=== PATIENT | female | born 1980 | race Caucasian/White ===

== ENCOUNTER 2021-01-18 19:38 | Emergency (ER) | payer SELFPAY ==
[2021-01-18 20:17] VITALS: BP 165/92; PULSE 79; RESP 18; TEMP 36.7; O2SAT 100; BMI 29.7
[2021-01-18 22:00] LABS: Add Urine Microscopic? NO; Charge for UA Resulting for Rev
[2021-01-18 22:08] LABS: Bilirubin Urine Neg (Negative); Blood Urine Neg (Negative); Glucose Urine UA Norm (Normal); Ketones Urine Negative (Negative); Nitrate Urine Negative (Negative); Protein Urine Neg (Negative); Specific Gravity, Urine 1.005 (1.005-1.030); Urine Appearance Clear (CLEAR); Urine Color Yellow (Yellow); pH Urine 7 (5-7)
[2021-01-18 22:09] LABS: Leukocyte Esterase Urine Negative (Negative); Urobilinogen Urine Norm (Negative)
[2021-01-18 22:31] LABS: Basophils # 0.1 10^3/uL (0.0-0.1); Basophils % 1.9 %; Eosinophils % 1.2 %; Lymphocytes # 1.2 10^3/uL (0.8-4.8); Lymphocytes % 38.6 %; Mean Corpuscular HGB Conc 26.4 g/dL (30.0-36.0); Mean Corpuscular Hemoglobin 17.7 pg (28.0-34.0); Mean Corpuscular Volume 67.1 fl (81-99); Mean Platelet Volume 9.7 fL (7.4-10.4); Monocytes # 0.3 10^3/uL (0.2-0.9); Monocytes % 9.7 %; Neutrophils # 1.55 10^3/uL (1.8-7.7); Neutrophils % 48.3 %; Nucleated Red Blood Cells % 0 %; Platelet Count 320 10^3/cmm (130-400); Red Cell Distribution Width 17.8 % (12.1-15.1); White Blood Count 3.2 10^3/uL (4.0-10.0)
[2021-01-18 22:35] LABS: Hematocrit 20.8 % (37.0-47.0); Hemoglobin 5.5 g/dL (11.5-15.3)
[2021-01-18 23:02] LABS: Alanine Aminotransferase 16 U/L (0-33); Albumin Level 4.3 g/dL (3.5-5.2); Alkaline Phosphatase 50 IU/L (35-105); Anion Gap 13.8 (5-19); Aspartate Amino Transferase 17 U/L (0-32); Blood Urea Nitrogen 6 mg/dL (6-20); Calcium 8.3 mg/dL (8.5-10.5); Carbon Dioxide 25 mmol/L (22-29); Chloride 103 mmol/L (98-107); Globulin 2.7 g/dL (1.3-4.6); Glomerular Filtration Rate 136.6 mL/min (90-130); Glucose 93 mg/dL (65-115); Osmolality Calculated 283 mOsm/kg (285-295); Potassium 3.8 mmol/L (3.5-5.1); Sodium 138 mmol/L (136-145); Total Bilirubin 0.3 mg/dL (0.15-1.2)
[2021-01-18 23:15] LABS: HCG, Serum Qual Negative (Negative)
--- NOTE | 2021-01-18 23:30 | CTR_ITS ---
PROCEDURE INFORMATION: Exam: CT Abdomen And Pelvis With Contrast Exam date and time: 01/18/2021 11:30 PM Age: 40 years old Clinical indication: Other: Vaginal bleeding; Additional info: Vaginal bleeding TECHNIQUE: Imaging protocol: Computed tomography of the abdomen and pelvis with contrast. Radiation optimization: All CT scans at this facility use at least one of these dose optimization techniques: automated exposure control; mA and/or kV adjustment per patient size (includes targeted exams where dose is matched to clinical indication); or iterative reconstruction. Contrast material: OMNI 350; Contrast volume: 95 ml; Contrast route: INTRAVENOUS (IV); [place] [facility] [place] 8:32 AM RADIATION DOSE METRICS: Total DLP (mGy-cm): 1320.76 FINDINGS: Liver: Low-attenuation lesion in the liver measuring > 5mm which is incompletely characterized on this exam. Gallbladder and bile ducts: Normal. No calcified stones. No ductal dilation. Pancreas: Normal. No ductal dilation. Spleen: Normal. No splenomegaly. Adrenal glands: Normal. No mass. Kidneys and ureters: Normal. No hydronephrosis. Stomach and bowel: Unremarkable. No obstruction. No mucosal thickening. Appendix: No evidence of appendicitis. Intraperitoneal space: Unremarkable. No free air. No significant fluid collection. Vasculature: One or more calcified pelvic phleboliths. Lymph nodes: Unremarkable. No enlarged lymph nodes. Urinary bladder: Unremarkable as visualized. Reproductive: Unremarkable as visualized. Bones/joints: Unremarkable. No acute fracture. Soft tissues: Unremarkable. CT/CT abdomen pelvis w con* [id number] IMPRESSION: No acute findings. Radiation Dose CTDIVOL = (mGy): DLP = 1320.76 (mGy-cm)
--- NOTE | 2021-01-18 23:39 | ED_ITS ---
HPI - Female Genitourinary General: Chief complaint: Vaginal Bleeding Stated complaint: Vaginal Bleeding Time Seen by Provider: 01/18/21 23:11 Source: patient Mode of arrival: ambulatory Limitations: no limitations History of Present Illness: HPI Narrative: 40-year-old female who states that she always has heavy. States that she has had constant bleeding over the last month. States it has been a heavy this whole month she denies it being any worse today. She states she just became concerned has it is not stopped. States she does pass clots at times. She does not have a physician the never seen anyone for this in the past she has had some slight weakness patient's normotensive here. She denies any abdominal pain denies any vomiting. Associated symptoms: Deny abdominal pain, headache(s) or nausea Review of Systems Const: Denies: fever(s), chills, body aches or change in appetite Eyes: Denies: blurry vision or eye discomfort ENMT: Denies: throat pain or dental pain Card: Denies: chest pain Resp: Denies: dyspnea GI: Denies: abdominal pain, nausea, vomiting or diarrhea : Reports: vaginal bleeding Musc: Denies: neck pain or back pain Skin/Breast: Denies: rash Neuro: Denies: headache(s) Psych: Denies: depression Shamar/Lymph: Denies: easy bruising All/Imm: Denies: urticaria Physical Exam Const: COMMON NORMALS: no acute distress, patient oriented x3 and healthy appearing HENMT: COMMON NORMALS: normocephalic and atraumatic HEAD & SCALP: normocephalic and atraumatic Eye: COMMON NORMALS: Equal, round and reactive pupils present and EOMs intact bilaterally PUPIL: Yes Equal, round and reactive pupils present Neck/C-Spine: COMMON NORMALS: full ROM and supple Chest: COMMONS NORMALS: normal inspection of the chest and normal palpation of entire chest wall Resp: COMMON NORMALS: normal respiratory effort, No retractions, No use of accessory muscles and clear to auscultation bilaterally AUSCULTATION: clear to auscultation bilaterally Cardio: COMMON NORMALS: regular rate, regular rhythm and No murmurs present (C ardio) RATE: regular rate RHYTHM: regular rhythm GI: COMMON NORMALS: Normal to inspection, nondistended, normoactive bowel sounds present, Soft to palpation, non-tender and no masses PALPATION: Yes Soft to palpation Extremity: COMMON NORMALS: normal to inspection and full ROM Neuro: COMMON NORMALS: patient oriented x3, moves all extremities and no focal motor deficits Psych: COMMON NORMALS: mental status grossly normal, Normal thought process present and cooperative THOUGHT PROCESS: Normal thought process present Skin: COMMON NORMALS: no rashes or lesions noted and no wounds GENERAL SKIN EXAM: no rashes or lesions noted Course Vital Signs: Vital signs: Vital Signs Temperature 98.4 F 01/19/21 04:25 Pulse Rate 78 01/19/21 04:25 Respiratory Rate 16 01/19/21 04:25 Blood Pressure 109/89 01/19/21 04:25 Pulse Oximetry 100 01/19/21 04:25 MDM - Female MDM Narrative: Medical decision making narrative: Patient presents here with vaginal bleeding that is chronic in nature causing her anemia I believe her anemia is chronic as her blood pressures here and vitals have been normal. CT scan shows no acute finding we will transfuse 2 units and get her follow-up with gynecology she is to return if she has any worsening symptoms she understands agrees to plan. Lab Data: Labs: Lab Results 01/18/21 01/18/21 01/18/21 19:41 20:55 22:10 WBC 3.2 10^3/uL L 10^ 3/uL (4.0-10.0) RBC 3.10 10^6/uL L 10 ^6/uL (4.1-5.3) Hgb 5.5 g/dL L* g/dL (11.5-15.3) Hct 20.8 % L* % (37.0-47.0) MCV 67.1 fl L fl (81-99) MCH 17.7 pg L pg (28.0-34.0) MCHC 26.4 g/dL L g/dL (30.0-36.0) RDW 17.8 % H % (12.1-15.1) Plt Count 320 10^3/cmm 10^3 /cmm (130-400) MPV 9.7 fL fL (7.4-10.4) Neut % (Auto) 48.3 % % Lymph % (Auto) 38.6 % % [place] % (Auto) 9.7 % % Eos % (Auto) 1.2 % % Baso % (Auto) 1.9 % % Neut # (Auto) 1.55 10^3/uL L 10 ^3/uL (1.8-7.7) Lymph # (Auto) 1.2 10^3/uL 10^3/ uL (0.8-4.8) [place] # (Auto) 0.3 10^3/uL 10^3/ uL (0.2-0.9) Eos # (Auto) 0.0 10^3/uL 10^3/ uL (0.0-0.8) Baso # (Auto) 0.1 10^3/uL 10^3/ uL (0.0-0.1) Nucleated RBC % (a uto) 0 % % Nucleated RBCs # 0.0 /100WBC /100W BC Sodium 138 mmol/L mmol/L (136-145) Potassium 3.8 mmol/L mmol/L (3.5-5.1) Chloride 103 mmol/L mmol/L (98-107) Carbon Dioxide 25 mmol/L mmol/L (22-29) Anion Gap 13.8 (5-19) BUN 6 mg/dL mg/dL (6-20) Creatinine 0.5 mg/dL mg/dL (0.5-0.9) GFR Calculation 136.6 mL/min H mL /min (90-130) Glucose 93 mg/dL mg/dL (65-115) Calculated Osmolal ity 283 mOsm/kg L mOs m/kg (285-295) Calcium 8.3 mg/dL L mg/dL (8.5-10.5) Total Bilirubin 0.3 mg/dL mg/dL (0.15-1.2) AST 17 U/L U/L (0-32) ALT 16 U/L U/L (0-33) Alkaline Phosphata se 50 IU/L IU/L (35-105) Total Protein 7.0 g/dL g/dL (6.6-8.7) Albumin 4.3 g/dL g/dL (3.5-5.2) Globulin 2.7 g/dL g/dL (1.3-4.6) HCG, Qual Urine Color Yellow (Yellow) Urine Appearance Clear (CLEAR) Urine pH 7 (5-7) Ur Specific Gravit y 1.005 (1.005-1.030) Urine Protein Neg (Negative) Urine Glucose (UA) Norm (Normal) Urine Ketones Negative (Negative) Urine Blood Neg (Negative) Urine Nitrate Negative (Negative) Urine Bilirubin Neg (Negative) Urine Urobilinogen Norm mg/dL mg/dL (Negative) Ur Leukocyte Tangela ase Negative (Negative) Blood Type Rho(D) Type Antibody Screen Crossmatch 01/18/21 01/19/21 22:10 00:07 WBC RBC Hgb Hct MCV MCH MCHC RDW Plt Count MPV Neut % (Auto) Lymph % (Auto) [place] % (Auto) Eos % (Auto) Baso % (Auto) Neut # (Auto) Lymph # (Auto) [place] # (Auto) Eos # (Auto) Baso # (Auto) Nucleated RBC % (a uto) Nucleated RBCs # Sodium Potassium Chloride Carbon Dioxide Anion Gap BUN Creatinine GFR Calculation Glucose Calculated Osmolal ity Calcium Total Bilirubin AST ALT Alkaline Phosphata se Total Protein Albumin Globulin HCG, Qual Negative (Negative) Urine Color Urine Appearance Urine pH Ur Specific Gravit y Urine Protein Urine Glucose (UA) Urine Ketones Urine Blood Urine Nitrate Urine Bilirubin Urine Urobilinogen Ur Leukocyte Tangela ase Blood Type AB Positive Rho(D) Type Positive Antibody Screen Negative Crossmatch See Detail Imaging Data: CT Abd/Pel: Attestation: I personally reviewed and interpreted this imaging study as follows: Radiologist's impression: [address] [place], [place] [address] [address] CT Scan Report Signed Patient: Arleth Ramirez Unit #: [id number] : [id number] ct#:[id number] Age/Sex: 40 / F ADM Date: 01/18/21 Loc: ER Room/Bed: Attending Dr: Ordering Provider/Ordering MD: Missy Rick MD Date of Service: 01/18/21 Procedure(s): CT abdomen pelvis w con* [id number] Accession Number(s): [id number] Report Number: [id number] PROCEDURE INFORMATION: Exam: CT Abdomen And Pelvis With Contrast Exam date and time: 01/18/2021 11:30 PM Age: 40 years old Clinical indication: Other: Vaginal bleeding; Additional info: Vaginal bleeding TECHNIQUE: Imaging protocol: Computed tomography of the abdomen and pelvis with contrast. Radiation optimization: All CT scans at this facility use at least one of these dose optimization techniques: automated exposure control; mA and/or kV adjustment per patient size (includes targeted exams where dose is matched to clinical indication); or iterative reconstruction. Contrast material: OMNI 350; Contrast volume: 95 ml; Contrast route: INTRAVENOUS (IV); [place] [facility] [place] 07[place]06/[place] 8:32 AM RADIATION DOSE METRICS: Total DLP (mGy-cm): 1320.76 FINDINGS: Liver: Low-attenuation lesion in the liver measuring > 5mm which is incompletely characterized on this exam. Gallbladder and bile ducts: Normal. No calcified stones. No ductal dilation. Pancreas: Normal. No ductal dilation. Spleen: Normal. No splenomegaly. Adrenal glands: Normal. No mass. Kidneys and ureters: Normal. No hydronephrosis. Stomach and bowel: Unremarkable. No obstruction. No mucosal thickening. Appendix: No evidence of appendicitis. Intraperitoneal space: Unremarkable. No free air. No significant fluid collection. Vasculature: One or more calcified pelvic phleboliths. Lymph nodes: Unremarkable. No enlarged lymph nodes. Urinary bladder: Unremarkable as visualized. Reproductive: Unremarkable as visualized. Bones/joints: Unremarkable. No acute fracture. Soft tissues: Unremarkable. CT/CT abdomen pelvis w con* [id number] IMPRESSION: No acute findings. Radiation Dose CTDIVOL = (mGy): DLP = 1320.76 (mGy-cm) Dictated By: Bong Mederos MD Signed By: Bong Mederos MD Signed Date/Time: 01/19/21 0119 DD/ 2330 Discharge Plan Discharge Patient Disposition: Home Clinical Impression: Vaginal bleeding, Anemia Condition: Stable Discharge Orders: Discharge ED (Routine); Ordered 01/19/21 Ordered By: Missy Rick Referrals: William Cantu MD [Physician] - 1-3 days Davin Sharpe MD [Primary Care Provider] - Discharge Diet: Advance as tolerated Discharge Activity: Resume usual activity Patient Instructions: Abnormal (Dysfunctional) Uterine Bleeding (ED), Anemia (ED) Coding Level of Care Code ED Strategic Marketing Associate for Chg Fwd Exam Comprehensive
[2021-01-18] MEDS: iohexol 350 mg/mL 100 mL Btl IV (23:49)
[2021-01-19] VITALS (11 sets, daily range): BP systolic 109–150; BP diastolic 76–89; PULSE 71–82; RESP 16–18; TEMP 36.7–37; O2SAT 98–100
[2021-01-19] MEDS: ondansetron 2 mg/ML SDV 2 mL 4 MG IVP (00:10)
[2021-01-19] MEDS: morphine 4 mg/mL SDV 1 mL IVP ×2 (00:10→03:18)
[2021-01-19] MEDS: HYDROcodone-acetaminophen 5-325 mg Tablet 1 TAB PO (05:41)
--- NOTE | 2021-01-19 13:45 | DCPLANNER ---
manager of purchasing had message to schedule a follow up appointment for patient with [facility]. manager of purchasing called the [facility], spoke with Robert, gave clinic patients information. manager of purchasing was told that patients information would be printed and reviewed. Clinic will call patient with appointment information.
--- NOTE | 2021-02-08 07:24 | DCPLANNER ---
Patient has a follow up appointment scheduled for , February 25, 2021 at 1:[address] Duran at [facility]. Clinic will call patient with appointment information.
--- NOTE | 2021-02-25 15:13 | DCPLANNER ---
Patient had a follow up appointment scheduled for 02.25.21 with [facility] - patient did not attend appointment.
== END 2021-01-19 06:30 | disposition home or self-care (01) ==
PROVIDERS: Emergency Medicine; Emergency Provider Emergency Medicine; PCP Family Medicine
DX: N93.9 Abnormal uterine and vaginal bleeding, unspecified (principal); D64.9 Anemia, unspecified
CPT/HCPCS: 36430; 74177; 80053; 81003; 84703; 85025; 86850; 86900; 86920; 96374; 96375; 96376; 99284; J2270; J2405; P9016; Q9967

== ENCOUNTER 2021-10-02 15:02 | Emergency (ER) | payer MEDICAID, SELFPAY ==
[2021-10-02 15:19] VITALS: BP 167/92; PULSE 78; RESP 16; TEMP 36.9; O2SAT 100
[2021-10-02 17:31] LABS: Basophils # 0.1 10^3/uL (0.0-0.1); Basophils % 1.8 %; Eosinophils # 0.2 10^3/uL (0.0-0.8); Eosinophils % 3.9 %; Lymphocytes # 1.6 10^3/uL (0.8-4.8); Lymphocytes % 42.9 %; Mean Corpuscular HGB Conc 26.3 g/dL (30.0-36.0); Mean Corpuscular Hemoglobin 17.5 pg (28.0-34.0); Mean Corpuscular Volume 66.5 fl (81-99); Mean Platelet Volume 10.5 fL (7.4-10.4); Monocytes # 0.4 10^3/uL (0.2-0.9); Monocytes % 9.4 %; Neutrophils # 1.59 10^3/uL (1.8-7.7); Neutrophils % 41.7 %; Nucleated Red Blood Cells % 0 %; Platelet Count 270 10^3/cmm (130-400); Red Blood Count 3.61 10^6/uL (4.1-5.3); Red Cell Distribution Width 17.2 % (12.1-15.1); White Blood Count 3.8 10^3/uL (4.0-10.0)
[2021-10-02 17:34] LABS: Hemoglobin 6.3 g/dL (11.5-15.3)
[2021-10-02 17:44] LABS: Alanine Aminotransferase 13 U/L (0-33); Albumin Level 4.4 g/dL (3.5-5.2); Alkaline Phosphatase 58 IU/L (35-105); Anion Gap 14.3 (5-19); Aspartate Amino Transferase 13 U/L (0-32); Blood Urea Nitrogen 11 mg/dL (6-20); Calcium 8.9 mg/dL (8.5-10.5); Carbon Dioxide 25 mmol/L (22-29); Chloride 103 mmol/L (98-107); Creatinine Clr Calc Pharmacy 128.4682; Globulin 2.7 g/dL (1.3-4.6); Glomerular Filtration Rate 110.2 mL/min (90-130); Glucose 84 mg/dL (65-115); Osmolality Calculated 285 mOsm/kg (285-295); Potassium 4.3 mmol/L (3.5-5.1); Sodium 138 mmol/L (136-145); Total Bilirubin 0.2 mg/dL (0.15-1.2); Total Protein 7.1 g/dL (6.6-8.7)
--- NOTE | 2021-10-02 17:53 | ED_ITS ---
HPI - Recheck/Abnormal Lab/Rx General: Chief Complaint: Recheck/Abnormal Lab/Rx Stated Complaint: abnormal labs/transfusion needed per dr. Time Seen by Provider: 10/02/21 17:46 Course Vital Signs: Vital signs: Vital Signs Temperature 98.4 F 10/02/21 15:19 Pulse Rate 78 10/02/21 15:19 Respiratory Rate 16 10/02/21 15:19 Blood Pressure 167/92 10/02/21 15:19 Pulse Oximetry 100 10/02/21 15:19 Oxygen Delivery Me thod 10/02/21 15:19 MDM - Recheck/Abnormal Lab/Rx Lab Data : 10/02/21 16:55 10/02/21 16:55 Laboratory Results WBC 3.8 10^3/uL (4.0-10.0) L 10/02/21 16:55 RBC 3.61 10^6/uL (4.1-5.3) L 10/02/21 16:55 Hgb 6.3 g/dL (11.5-15.3) L* 10/02/21 16:55 Hct 24.0 % (37.0-47.0) L 10/02/21 16:55 MCV 66.5 fl (81-99) L 10/02/21 16:55 MCH 17.5 pg (28.0-34.0) L 10/02/21 16:55 MCHC 26.3 g/dL (30.0-36.0) L 10/02/21 16:55 RDW 17.2 % (12.1-15.1) H 10/02/21 16:55 Plt Count 270 10^3/cmm (130-400) 10/02/21 16:55 MPV 10.5 fL (7.4-10.4) H 10/02/21 16:55 Neut % (Auto) 41.7 % 10/02/21 16:55 Lymph % (Auto) 42.9 % 10/02/21 16:55 [place] % (Auto) 9.4 % 10/02/21 16:55 Eos % (Auto) 3.9 % 10/02/21 16:55 Baso % (Auto) 1.8 % 10/02/21 16:55 Neut # (Auto) 1.59 10^3/uL (1.8-7.7) L 10/02/21 16:55 Lymph # (Auto) 1.6 10^3/uL (0.8-4.8) 10/02/21 16:55 [place] # (Auto) 0.4 10^3/uL (0.2-0.9) 10/02/21 16:55 Eos # (Auto) 0.2 10^3/uL (0.0-0.8) 10/02/21 16:55 Baso # (Auto) 0.1 10^3/uL (0.0-0.1) 10/02/21 16:55 Nucleated RBC % (auto) 0 % 10/02/21 16:55 Nucleated RBCs # 0.0 /100WBC 10/02/21 16:55 Sodium 138 mmol/L (136-145) 10/02/21 16:55 Potassium 4.3 mmol/L (3.5-5.1) 10/02/21 16:55 Chloride 103 mmol/L (98-107) 10/02/21 16:55 Carbon Dioxide 25 mmol/L (22-29) 10/02/21 16:55 Anion Gap 14.3 (5-19) 10/02/21 16:55 BUN 11 mg/dL (6-20) 10/02/21 16:55 Creatinine 0.6 mg/dL (0.5-0.9) 10/02/21 16:55 GFR Calculation 110.2 mL/min (90-130) 10/02/21 16:55 Glucose 84 mg/dL (65-115) 10/02/21 16:55 Calculated Osmolality 285 mOsm/kg (285-295) 10/02/21 16:55 Calcium 8.9 mg/dL (8.5-10.5) 10/02/21 16:55 Total Bilirubin 0.2 mg/dL (0.15-1.2) 10/02/21 16:55 AST 13 U/L (0-32) 10/02/21 16:55 ALT 13 U/L (0-33) 10/02/21 16:55 Alkaline Phosphatase 58 IU/L (35-105) 10/02/21 16:55 Total Protein 7.1 g/dL (6.6-8.7) 10/02/21 16:55 Albumin 4.4 g/dL (3.5-5.2) 10/02/21 16:55 Globulin 2.7 g/dL (1.3-4.6) 10/02/21 16:55 Discharge Plan Discharge Patient Disposition: Home Clinical Impression: Dysfunctional uterine bleeding, Symptomatic anemia Condition: Stable Prescriptions: No Action Chlorophyll 10 mg Tablet 10 mg PO DAILY 28 mg iron- 800 mcg Tablet 1 tab PO DAILY Discharge Orders: Discharge ED (Routine); Ordered 10/02/21 Ordered By: Yosvany Smith Referrals: Davin Sharpe MD [Primary Care Provider] - Discharge Diet: Usual diet Discharge Activity: Increase activity as tolerated Patient Instructions: Abnormal (Dysfunctional) Uterine Bleeding (ED), Iron Rich Diet (ED), Anemia (ED) Activity Restrictions/Additional Instructions: Thank you for visiting the emergency department. You were seen and evaluated for symptoms associated with anemia. Your hemoglobin is 6.3 today. As discu ssed this does qualify for transfusion however after discussing of risks and benefits of you are electing to forego this at this time. If you begin to bleed again or symptoms worsen please return immediately to an emergency department. I will message case management for follow-up with [employer], please call if you do not hear from them by Monday. Please return to the emergency department for anything that you are concerned about and feel needs emergency department evaluation. Coding Level of Care Code ED Patient Safety Officer for Faith Kelly
--- NOTE | 2021-10-02 19:33 | ED_ITS ---
HPI - Recheck/Abnormal Lab/Rx General: Chief Complaint: Recheck/Abnormal Lab/Rx Stated Complaint: abnormal labs/transfusion needed per dr. Time Seen by Provider: 10/02/21 17:46 History of Present Illness: Ms. Ramirez is a 41-year-old lady who presents to the emergency department for recheck of anemia. She reports a longstanding history of typically regular menstrual periods which last anywhere between 6 to 8 days of fairly heavy bleeding. She does have a known history of anemia and takes iron supplementation. She presented to the ER in December 2020 with approximately 1 month of daily heavy bleeding associated with passage of clots. She had generalized weakness and unwellness feeling with this. Hemoglobin at that time was found to be 5.5 and she was transfused 2 units of blood. She resumed normal periods however approximately 2 months ago began having bleeding. This is occurred daily and sometimes is heavy and sometimes it is light. She now has mild generalized lightheadedness, easy fatigue and muscle cramps, and generalized malaise. She presented to [place] and had an ultrasound performed which showed fibroids. Her hemoglobin at that time was 6.3. She presents for recheck today. She reports that she stopped having abnormal uterine bleeding 5 days ago. Denies other changes in health or significant abdominal discomfort. Intensity of symptoms overall is moderate. Course has now stabilized. No other specific changes in health, exacerbating, or alleviating factors identified. Review of Systems General: Reports: 10 or more systems reviewed and unremarkable except in HPI and below PFSH ED PFSH: Medical History Anemia Dysfunctional uterine bleeding Family History Denies family history of Clotting disorder Bleeding disorder Physical Exam Const: COMMON NORMALS: alert GENERAL APPEARANCE: cooperative and well developed HENMT: COMMON NORMALS: normocephalic and atraumatic HEAD & SCALP: normocephalic and atraumatic Eye: COMMON NORMALS: conjunctivae normal CONJUNCTIVA: Yes conjunctivae normal SCLERA: sclerae normal Neck/C-Spine: COMMON NORMALS: supple GENERAL: Yes trachea midline Resp: COMMON NORMALS: normal respiratory effort EFFORT & INSPECTION: Yes able to speak in complete sentences Cardio: COMMON NORMALS: regular rate and regular rhythm RATE: regular rate RHYTHM: regular rhythm GI: COMMON NORMALS: Soft to palpation PALPATION: Yes Soft to palpation and No Tenderness to palpation present (GI) PERCUSSION: normal to percussion Extremity: GENERAL: Yes normal exam except as noted and No edema Neuro: COMMON NORMALS: moves all extremities SENSORIUM/ORIENTATION: Yes alert and No Orientation impaired Psych: COMMON NORMALS: mental status grossly normal and Normal thought process present THOUGHT PROCESS: Normal thought process present Course Vital Signs: Vital signs: Vital Signs Temperature 98.4 F 10/02/21 15:19 Pulse Rate 78 10/02/21 15:19 Respiratory Rate 16 10/02/21 15:19 Blood Pressure 167/92 10/02/21 15:19 Pulse Oximetry 100 10/02/21 15:19 Oxygen Delivery Me thod 10/02/21 15:19 MDM - Recheck/Abnormal Lab/Rx Medical Decision Making Discussed results of ED evaluation with the patient. Discussed typical recommendation for blood transfusion with hemoglobin under 7. I explained the reasoning for this recommendation including lack of oxygen delivery likely explaining symptoms. After discussion of risks of transfusion the patient wishes to forego transfusion at this time as she is no longer having vaginal bleeding. I discussed the case with DELIVERY RN on-call, I offered the patient Micronor which she also declined after discussion. I will place a case management referral for close follow-up with DELIVERY RN. Strict return precautions given. Medical Records I reviewed the patient's medical records. Lab Data I reviewed the patient's lab results. : 10/02/21 16:55 10/02/21 16:55 Laboratory Results WBC 3.8 10^3/uL (4.0-10.0) L 10/02/21 16:55 RBC 3.61 10^6/uL (4.1-5.3) L 10/02/21 16:55 Hgb 6.3 g/dL (11.5-15.3) L* 10/02/21 16:55 Hct 24.0 % (37.0-47.0) L 10/02/21 16:55 MCV 66.5 fl (81-99) L 10/02/21 16:55 MCH 17.5 pg (28.0-34.0) L 10/02/21 16:55 MCHC 26.3 g/dL (30.0-36.0) L 10/02/21 16:55 RDW 17.2 % (12.1-15.1) H 10/02/21 16:55 Plt Count 270 10^3/cmm (130-400) 10/02/21 16:55 MPV 10.5 fL (7.4-10.4) H 10/02/21 16:55 Neut % (Auto) 41.7 % 10/02/21 16:55 Lymph % (Auto) 42.9 % 10/02/21 16:55 [place] % (Auto) 9.4 % 10/02/21 16:55 Eos % (Auto) 3.9 % 10/02/21 16:55 Baso % (Auto) 1.8 % 10/02/21 16:55 Neut # (Auto) 1.59 10^3/uL (1.8-7.7) L 10/02/21 16:55 Lymph # (Auto) 1.6 10^3/uL (0.8-4.8) 10/02/21 16:55 [place] # (Auto) 0.4 10^3/uL (0.2-0.9) 10/02/21 16:55 Eos # (Auto) 0.2 10^3/uL (0.0-0.8) 10/02/21 16:55 Baso # (Auto) 0.1 10^3/uL (0.0-0.1) 10/02/21 16:55 Nucleated RBC % (auto) 0 % 10/02/21 16:55 Nucleated RBCs # 0.0 /100WBC 10/02/21 16:55 Sodium 138 mmol/L (136-145) 10/02/21 16:55 Potassium 4.3 mmol/L (3.5-5.1) 10/02/21 16:55 Chloride 103 mmol/L (98-107) 10/02/21 16:55 Carbon Dioxide 25 mmol/L (22-29) 10/02/21 16:55 Anion Gap 14.3 (5-19) 10/02/21 16:55 BUN 11 mg/dL (6-20) 10/02/21 16:55 Creatinine 0.6 mg/dL (0.5-0.9) 10/02/21 16:55 GFR Calculation 110.2 mL/min (90-130) 10/02/21 16:55 Glucose 84 mg/dL (65-115) 10/02/21 16:55 Calculated Osmolality 285 mOsm/kg (285-295) 10/02/21 16:55 Calcium 8.9 mg/dL (8.5-10.5) 10/02/21 16:55 Total Bilirubin 0.2 mg/dL (0.15-1.2) 10/02/21 16:55 AST 13 U/L (0-32) 10/02/21 16:55 ALT 13 U/L (0-33) 10/02/21 16:55 Alkaline Phosphatase 58 IU/L (35-105) 10/02/21 16:55 Total Protein 7.1 g/dL (6.6-8.7) 10/02/21 16:55 Albumin 4.4 g/dL (3.5-5.2) 10/02/21 16:55 Globulin 2.7 g/dL (1.3-4.6) 10/02/21 16:55 Discharge Plan Discharge Patient Disposition: Home Clinical Impression: Dysfunctional uterine bleeding, Symptomatic anemia Condition: Stable Prescriptions: No Action Chlorophyll 10 mg Tablet 10 mg PO DAILY 28 mg iron- 800 mcg Tablet 1 tab PO DAILY Discharge Orders: Discharge ED (Routine); Ordered 10/02/21 Ordered By: Yosvany Smith Referrals: Davin Sharpe MD [Primary Care Provider] - Discharge Diet: Usual diet Discharge Activity: Increase activity as tolerated Patient Instructions: Abnormal (Dysfunctional) Uterine Bleeding (ED), Iron Rich Diet (ED), Anemia (ED) Activity Restrictions/Additional Instructions: Thank you for visiting the emergency department. You were seen and evaluated for symptoms associated with anemia. Your hemoglobin is 6.3 today. As discussed this does qualify for transfusion however after discussing of risks and benefits of you are electing to forego this at this time. If you begin to bleed again or symptoms worsen please return immediately to an emergency department. I will message case management for follow-up with [employer] [employer], please call if you do not hear from them by Monday. Please return to the emergency department for anything that you are concerned about and feel needs emergency department evaluation. Coding Level of Care Code ED Sewing Techniques Demonstrator for Faith Kelly
--- NOTE | 2021-10-04 15:13 | DCPLANNER ---
Addendum entered by Jaylyn Beard 02/15/22 15:47: Patient had a follow up appointment scheduled [facility] - patient did not attend appointment. Addendum entered by Jaylyn Beard 10/07/21 16:28: Patient has a follow up appointment scheduled for , November 18, 2021 at 1:[address] Duran. Clinic will call patient with appointment information. Original Note: manager photo had message to schedule a follow up appointment for patient with [facility]. manager photo sent patients information to the front office staff at [facility] Patients information will be printed and reviewed. Clinic will call patient with appointment information.
== END 2021-10-02 19:03 | disposition home or self-care (01) ==
PROVIDERS: Physician Assistant; Emergency Provider Emergency Medicine; PCP Family Medicine
DX: D64.9 Anemia, unspecified (principal); N93.8 Other specified abnormal uterine and vaginal bleeding
CPT/HCPCS: 80053; 85025; 99283

== ENCOUNTER 2024-03-29 11:02 | Oncology outpatient (recurring) (ONCR) | payer MEDICAID, SELFPAY ==
[2024-03-22 09:18] VITALS: BP 149/83; PULSE 61; RESP 17; TEMP 36.6; O2SAT 97
[2024-03-22] MEDS: iron sucrose 200 MG in sodium chloride 0.9% 50 ML 240 MG IV (09:42)
[2024-03-25 12:13] VITALS: BP 147/81; PULSE 72; RESP 18; TEMP 36.3; O2SAT 97
[2024-03-25] MEDS: sodium chloride 0.9% 250 ML 75 ML IV (12:24)
[2024-03-25] MEDS: iron sucrose 200 MG in sodium chloride 0.9% 50 ML 240 MG IV (12:25)
[2024-03-25 13:17] VITALS: BP 134/80; PULSE 70; RESP 18; TEMP 36.6; O2SAT 98
[2024-03-27] MEDS: iron sucrose 200 MG in sodium chloride 0.9% 50 ML 240 MG IV (10:24)
[2024-03-27 11:01] VITALS: BP 130/80; PULSE 74; RESP 16; TEMP 36.3; O2SAT 99
[2024-03-29 11:17] VITALS: BP 119/74; PULSE 70; RESP 16; TEMP 36.4; O2SAT 97
[2024-03-29] MEDS: iron sucrose 200 MG in sodium chloride 0.9% 50 ML 240 MG IV (11:25)
[2024-03-29 11:49] VITALS: BP 117/78; PULSE 65; RESP 17; TEMP 36.6; O2SAT 98
== END 2024-03-29 23:59 | disposition home or self-care (01) ==
PROVIDERS: PCP Family Medicine; Visit Provider Family Medicine
DX: Z53.9 Procedure and treatment not carried out, unspecified reason (principal); D50.8 Other iron deficiency anemias; Z79.899 Other long term (current) drug therapy
CPT/HCPCS: 96365; J1756; J7050

== ENCOUNTER 2024-04-01 11:47 | Oncology outpatient (recurring) (ONCR) | payer MEDICAID, SELFPAY ==
[2024-04-01] MEDS: iron sucrose 200 MG in sodium chloride 0.9% 50 ML 240 MG IV (13:09)
[2024-04-01 13:40] VITALS: BP 117/70; PULSE 73; RESP 16; TEMP 36.4; O2SAT 99
== END 2024-04-26 23:59 | disposition home or self-care (01) ==
PROVIDERS: PCP Family Medicine; Visit Provider Family Medicine
DX: D50.8 Other iron deficiency anemias (principal); Z79.899 Other long term (current) drug therapy
CPT/HCPCS: 96365; J1756